=== PATIENT | male | born 1960 | race Two or more races ===

== ENCOUNTER 2024-05-04 12:07 | Emergency (ER) | payer OTHER ==
[2024-05-04 12:20] VITALS: BP 133/90; PULSE 84; RESP 18; TEMP 98.2
[2024-05-04 12:26] VITALS: BMI 28.6
== END 2024-05-04 13:16 | disposition home or self-care (01) ==
LOC: FER 12:07
DX: R19.7 Diarrhea, unspecified (principal); R10.9 Unspecified abdominal pain
CPT/HCPCS: 99283-25

== ENCOUNTER 2025-03-10 09:59 | Emergency (ER) | payer OTHER ==
[2025-03-10 10:18] VITALS: BP 111/67; PULSE 81; RESP 18; TEMP 98; BMI 30.5
[2025-03-10 11:47] LABS: URINE APPEARANCE CLEAR; URINE BILIRUBIN NEGATIVE (NEGATIVE); URINE COLOR YELLOW; URINE GLUCOSE (UA) NEGATIVE (NEGATIVE); URINE KETONE TRACE (NEGATIVE); URINE LEUK ESTERASE NEGATIVE (NEGATIVE); URINE NITRITE NEGATIVE (NEGATIVE); URINE PROTEIN TRACE (NEGATIVE); URINE UROBILINOGEN 1.0 mg/dL (0.2-1.0)
[2025-03-10] MEDS ORDERED: KETOROLAC TROMETHAMINE 30 MG/1 ML VIAL ONE (11:49)
[2025-03-10] MEDS: KETOROLAC TROMETHAMINE 30 MG/1 ML VIAL IM ONE (11:55)
== END 2025-03-10 12:39 | disposition home or self-care (01) ==
LOC: JERFT 09:59 → JER 09:59 → JERFT 12:39
PROC: 3E0233Z Introduction of Anti-inflammatory into Muscle, Percutaneous Approach (ICD-10-PCS; principal; 2025-03-10)
DX: S39.012A Strain of muscle, fascia and tendon of lower back, initial encounter (principal); X50.0XXA Overexertion from strenuous movement or load, initial encounter
CPT/HCPCS: 81003; 87086; 99284-25